=== PATIENT | female | born 1950 | race Caucasian/White ===

== ENCOUNTER 2021-05-14 13:54 | Emergency (ER) | payer MEDICARE, SELFPAY ==
[2021-05-14] VITALS (7 sets, daily range): BP systolic 141–183; BP diastolic 82–93; PULSE 100–162; RESP 13–20; TEMP 36.7; O2SAT 97–99; BMI 30.3
--- NOTE | 2021-05-14 | ECG_ITS ---
Test Reason : TACKICARDIA Blood Pressure : / mmHG Vent. Rate : 145 BPM Atrial Rate : 145 BPM P-R Int : 090 ms QRS Dur : 110 ms QT Int : 348 ms P-R-T Axes : 012 -22 021 degrees QTc Int : 540 ms Possible Atrial flutter with 2 to 1 block Incomplete right bundle branch block ST & T wave abnormality, consider anterior ischemia Abnormal ECG No previous ECGs available Referred By: Generic ED Physician Electronically Signed By:MADISYN GAN MD
--- NOTE | ~2021-05-14 | XR_ITS ---
EXAMINATION: XR CHEST CLINICAL INFORMATION: Pulmonary edema and low suspicion COMPARISON: None TECHNIQUE: Frontal view of the chest was obtained. FINDINGS: The lungs are well-expanded but clear of acute pneumonic process. The heart size is normal with increased pulmonary vascularity suggestive of mild congestion. No gross bony abnormality seen. There are surgical hieu in the left axilla. XR/XR chest 1V IMPRESSION: There is moderate pulmonary vascular congestion with normal size heart. Question volume overload.
--- NOTE | 2021-05-14 14:41 | ED.GENADULT ---
HPI - General Adult General Chief complaint: General Medical Stated complaint: hypertension Time Seen by Provider: 05/14/21 14:33 Source: patient Mode of arrival: ambulatory Limitations: no limitations History of Present Illness HPI narrative: Patient comes to the emergency room complaining of rapid heart rate for the last 2 hours. Patient states that early this morning patient was in her gymnastics class, patient was asymptomatic, but her Apple watch made her aware that her heart rate was above 160, patient became very anxious and had increase in anxiety. Patient states that she does not feel any palpitations, no shortness of breath, no chest pain. Patient states she has history of episodes of rapid heart rate for which she takes atenolol. However, because patient is due for allergy shots, patient states that she did not take her atenolol this morning, which she usually takes at 08:00 Related Data Allergies Allergy/AdvReac Type Severity Reaction Status Date / Time bee pollen [bee stings] Allergy Unknown Verified 05/14/21 14:52 Review of Systems Review of Systems: Constitutional : No Weight loss, No Fever, No Chills, No Night Sweats, No Fatigue, No Malaise ENT/Mouth : No Hearing loss, No Ear Pain, No Nasal Congestion, No Sinus Pain, No Hoarseness, No sore throat, No Rhinorrhea, No Swallowing Difficulty Eyes: No Eye Pain, No Swelling, No Redness, No Foreign Body, No Discharge, No Vision Changes Cardiovascular : No Chest Pain, No SOB, No Dyspnea on Exertion, No Orthopnea, No Edema, No Palpitations Respiratory : No Cough, No Sputum, No Wheezing, No Smoke Exposure, No Dyspnea Gastrointestinal : No Nausea, No Vomiting, No Diarrhea, No Constipation, No abdominal Pain, No Hematochezia, No Melena Genitourinary : no irregular bleeding, No Dysuria, No Urinary Frequency, No Hematuria, No Urinary Incontinence, No Urgency, No Flank Pain, No Urinary Flow Changes, No Hesitancy Musculoskeletal : No joint pain, No Myalgias, No Joint Swelling Skin : No Skin Lesions, No rash Neuro : No Weakness, No Numbness, No Paresthesias, No Loss of Consciousness, No Dizziness, No Headache Psych : Complaining of anxiety,No Depression, No SI/HI/AH/VH, No Social Issues, Heme/Lymph: No Bruising, No Bleeding,No Lymphadenopathy Endocrine : No Polyuria, No Polydipsia, No Temperature Intolerance [facility] Past Medical History Medical History (Updated 05/14/21 @ 18:56 by Lesley Concepcion MD) Rapid heart rate Seasonal allergies Social History Social History Patient Tobacco Use Status: Former Tobacco user Use of substances other than those prescribed or required for medical reasons: No Advance Directives: No Advance Directives Information Provided: No Physical Exam Vital Signs: Vital Signs: Last Vital Signs Temp 98.0 F 05/14/21 14:18 Pulse 113 H 05/14/21 17:21 Resp 20 05/14/21 17:21 BP 152/92 H 05/14/21 17:21 Pulse Ox 98 05/14/21 17:21 Body Mass Index 30.3 Const: Other: Appearance: Alert. Oriented X3. No acute distress. Eyes: Pupils equal, round and reactive to light. ENT: Pharynx normal. Neck: Normal inspection. Neck supple. No lymph nodes noted. No crepitus CVS: Tachycardic, heart rate approximately 160, Pulses normal. Normal S1 and S2 Respiratory: No respiratory distress. Breath sounds normal. No Wheezing. No rales Abdomen: Soft and nontender. No rigidity. No distention. Skin: Skin warm and dry. Normal skin color. Normal skin turgor. Extremities: No lower extremity edema. No lower extremity edema. No Lacerations. No Rash Neuro: Oriented X 3. No motor deficit. No sensory deficit. Moving all extermities. No slurred speech. Course Course Course Narrative: Patient received 2 doses 5 mg IV metoprolol. Heart rate improved to 100, blood pressure in the 140s. I discussed the EKG in patient with Dr. Tsai, we will give the patient 100 mg of atenolol. Patient instructed to take 100 mg p.o. daily, patient will follow-up with Dr. Tsai, states she does not have a clinic lpn Patient states that he just refill her 50 mg tablets. Patient will double up on her dose to take a total of 100 mg daily. Patient will follow up soon with Dr. Tsai and states she has an appointment this coming week with her primary care physician Medical Decision Making Lab Data Result diagrams: 05/14/21 14:47 05/14/21 14:47 Labs: Lab Results 11/24/21 11/24/21 11/24/21 Range/Units 14:47 14:47 14:47 WBC 11.7 H (4.8-10.8) X10*3/uL RBC 3.85 L (4.20-5.50) X10*6/uL Hgb 13.0 (12.0-16.0) g/dl Hct 36.7 L (37.0-47.0) % MCV 95.3 (80.0-98.0) fL MCH 33.8 H (27.0-33.0) pg MCHC 35.4 H (31.0-35.0) g/dl RDW 13.2 (11.0-16.0) % Plt Count 411 H (160-400) X10*3/uL MPV 9.2 L (9.4-12.3) fL Immature Gran % (Auto) 0.5 H (0.0-0.4) % Neut % (Auto) 77.7 H (45-73) % Lymph % (Auto) 12.9 L (20-40) % [place] % (Auto) 8.2 (2-11) % Eos % (Auto) 0.2 (0-4) % Baso % (Auto) 0.5 (0-2) % Lymph # (Auto) 1.5 (1.2-4.9) X10*3/uL [place] # (Auto) 1.0 (0.1-1.2) X10*3/uL Eos # (Auto) 0.0 (0.0-0.4) X10*3/uL Baso # (Auto) 0.1 (0.0-0.2) X10*3/uL Abs Immat Gran (auto) 0.06 H (0.00-0.03) X10*3/uL Absolute Neuts (auto) 9.1 H (2.0-8.3) x10*3/uL Absolute Nucleated RBC 0.000 (0.0-0.012) X10*3/uL Nucleated RBC % (auto) 0.0 (0.0-0.2) /100WBC PT (9.9-13.0) SEC INR (0.9-1.1) Sodium 135 (135-145) mmol/L Potassium 4.0 (3.3-5.1) mmol/L Chloride 101 (96-108) mmol/L Carbon Dioxide 20 L (22-29) mmol/L Anion Gap 18 (12-20) BUN 12 (9-16) mg/dL Creatinine 0.72 (0.5-1.4) mg/dL Estim Creat Clear Calc 70.0 Estimated GFR > 60 Random Glucose 146 H (60-115) mg/dL Calcium 9.6 (8.4-10.2) mg/dL Total Bilirubin 0.4 (0.0-1.0) mg/dL Direct Bilirubin 0.2 (0.0-0.5) mg/dL AST 48 H (5-31) U/L ALT 66 H (0-31) U/L Alkaline Phosphatase 83 (39-117) U/L Troponin I High Sens 5.3 (<3.5-17.0) ng/L Total Protein 8.2 H (6.5-8.0) g/dL Albumin 4.9 (3.5-5.0) g/dL 11// Range/Units 14:47 WBC (4.8-10.8) X10*3/uL RBC (4.20-5.50) X10*6/uL Hgb (12.0-16.0) g/dl Hct (37.0-47.0) % MCV (80.0-98.0) fL MCH (27.0-33.0) pg MCHC (31.0-35.0) g/dl RDW (11.0-16.0) % Plt Count (160-400) X10*3/uL MPV (9.4-12.3) fL Immature Gran % (Auto) (0.0-0.4) % Neut % (Auto) (45-73) % Lymph % (Auto) (20-40) % [place] % (Auto) (2-11) % Eos % (Auto) (0-4) % Baso % (Auto) (0-2) % Lymph # (Auto) (1.2-4.9) X10*3/uL [place] # (Auto) (0.1-1.2) X10*3/uL Eos # (Auto) (0.0-0.4) X10*3/uL Baso # (Auto) (0.0-0.2) X10*3/uL Abs Immat Gran (auto) (0.00-0.03) X10*3/uL Absolute Neuts (auto) (2.0-8.3) x10*3/uL Absolute Nucleated RBC (0.0-0.012) X10*3/uL Nucleated RBC % (auto) (0.0-0.2) /100WBC PT 11.1 (9.9-13.0) SEC INR 1.0 (0.9-1.1) Sodium (135-145) mmol/L Potassium (3.3-5.1) mmol/L Chloride (96-108) mmol/L Carbon Dioxide (22-29) mmol/L Anion Gap (12-20) BUN (9-16) mg/dL Creatinine (0.5-1.4) mg/dL Estim Creat Clear Calc Estimated GFR Random Glucose (60-115) mg/dL Calcium (8.4-10.2) mg/dL Total Bilirubin (0.0-1.0) mg/dL Direct Bilirubin (0.0-0.5) mg/dL AST (5-31) U/L ALT (0-31) U/L Alkaline Phosphatase (39-117) U/L Troponin I High Sens (<3.5-17.0) ng/L Total Protein (6.5-8.0) g/dL Albumin (3.5-5.0) g/dL Discharge Plan Discharge Clinical Impression: Tachycardia Patient Disposition: Home, Self-Care Instructions: Tachycardia (ED), Valsalva Maneuver (ED) Additional Instructions: Please increase your dose of atenolol to 100mg oral daily. Please follow-up with Cardiology and your primary care physician in 2 days.
[2021-05-14 14:52] LABS: MANUAL DIFF FLAG NO
[2021-05-14] MEDS: Metoprolol Tartrate 5 MG/5 ML VIAL IVPUSH ×2 (14:53→15:59)
[2021-05-14 14:54] LABS: Basophils Absolute Auto 0.1 X10*3/uL (0.0-0.2); Basophils Percent Auto 0.5 % (0-2); Eosinophils Percent Auto 0.2 % (0-4); Hematocrit 36.7 % (37.0-47.0); Imm Gran Abs Auto 0.06 X10*3/uL (0.00-0.03); Imm Gran Pct Auto 0.5 % (0.0-0.4); Lymphocytes Absolute Auto 1.5 X10*3/uL (1.2-4.9); Lymphocytes Percent Auto 12.9 % (20-40); Mean Corpuscular HGB Conc 35.4 g/dl (31.0-35.0); Mean Corpuscular Hemoglobin 33.8 pg (27.0-33.0); Mean Corpuscular Volume 95.3 fL (80.0-98.0); Mean Platelet Volume 9.2 fL (9.4-12.3); Monocytes Percent Auto 8.2 % (2-11); Neutrophils Absolute Auto 9.1 x10*3/uL (2.0-8.3); Neutrophils Percent Auto 77.7 % (45-73); Platelet Count 411 X10*3/uL (160-400); Red Blood Count 3.85 X10*6/uL (4.20-5.50); Red Cell Distribution Width 13.2 % (11.0-16.0); White Blood Count 11.7 X10*3/uL (4.8-10.8)
--- NOTE | 2021-05-14 14:58 | PC.NURSE ---
IV started, labs obtained and sent to lab. 5mg iv metoprolol given IVP. HR now 130 from 140. Awaiting further med response at this time. Pt on cardia monitor BP trending down.
[2021-05-14 15:06] LABS: Prothrombin Time 11.1 SEC (9.9-13.0)
[2021-05-14 15:13] LABS: Alanine Aminotransferase 66 U/L (0-31); Albumin Level 4.9 g/dL (3.5-5.0); Alkaline Phosphatase 83 U/L (39-117); Anion Gap 18 (12-20); Aspartate Amino Transferase 48 U/L (5-31); Bilirubin Direct 0.2 mg/dL (0.0-0.5); Bilirubin Total 0.4 mg/dL (0.0-1.0); Blood Urea Nitrogen 12 mg/dL (9-16); Calcium 9.6 mg/dL (8.4-10.2); Carbon Dioxide 20 mmol/L (22-29); Chloride 101 mmol/L (96-108); Estimated Glomerular Filt Rate > 60; Glucose Random 146 mg/dL (60-115); Sodium 135 mmol/L (135-145); Total Protein 8.2 g/dL (6.5-8.0)
[2021-05-14 15:15] LABS: Troponin-I High Sensitivity 5.3 ng/L (<3.5-17.0)
[2021-05-14] MEDS: 0.9 % Sodium Chloride 1,000 ML 999 ML IVCONT (16:00)
--- NOTE | 2021-05-14 17:31 | ECG_ITS ---
Test Reason : repeat Blood Pressure : / mmHG Vent. Rate : 116 BPM Atrial Rate : 116 BPM P-R Int : 132 ms QRS Dur : 112 ms QT Int : 374 ms P-R-T Axes : 011 -15 020 degrees QTc Int : 519 ms Sinus tachycardia Incomplete right bundle branch block ST & T wave abnormality, consider anterior ischemia Abnormal ECG When compared with ECG of 14-MAY-2021 14:28, Heart rate has decreased Sinus tachycardia has replaced Atrial flutter with 2 to 1 block Referred By: Lesley Concepcion Electronically Signed By:MADISYN GAN MD
== END 2021-05-14 19:17 | disposition home or self-care (01) ==
PROVIDERS: Emergency Provider Emergency Medicine; PCP Internal Medicine
DX: R00.0 Tachycardia, unspecified (principal); I10 Essential (primary) hypertension; Z87.891 Personal history of nicotine dependence
CPT/HCPCS: 36415; 71045; 80048; 80076; 84484; 85025; 85610; 93005; 96361; 96374; 96375; 99284